=== PATIENT | male | born 1945 | race Caucasian/White ===

== ENCOUNTER 2017-08-20 04:45 | Emergency (ER) | payer MEDICARE ==
[~2017-08-20] VITALS: Ht 170.2 cm; Wt 72.0 kg
[2017-08-20 04:53] VITALS: BP 129/71; PULSE 75; RESP 18; TEMP 97.5; O2SAT 96
--- NOTE | 2017-08-20 04:57 | PD ---
HPI Chief Complaint: fall Time Seen by Provider: 04:56 Travel History International Travel<30 days: No Contact w/Intl Traveler<30days: No Traveled to known affect area: No History of Present Illness HPI 72-year-old male presents to the emergency department by private transportation the care of her spouse for evaluation of head injury and syncope. According to the patient's spouse, a [place] ED nurse, and the patient he was asleep in bed and somehow managed to roll out of bed and fall to the floor hitting the back of his head against the night stand and his buttocks/coccyx against the bed railing. estimates the bed height to be 2-1/2-3 feet. states that she was awake and in the bathroom and heard the patient fall; she went immediately to his aid and the patient was awake. assisted the patient to bed and then shortly thereafter the patient complained of not feeling well and witnessed a syncopal episode about "2 minutes" in duration with brief posturing and ashen color and poor respiratory effort. The turned him on his side into a rescue position. Patient came to on his own. Spouse does not report any seizure activity or postictal confusion. Patient here complains of posterior head pain ("not too bad") and coccyx pain (5/10). Patient has been ambulatory. Patient here denies any visual disturbance change in mentation tongue trauma denies neck pain denies chest pain rib pain or shortness of breath. Patient denies upper back pain abdominal pain or extremity numbness tingling weakness or pain. Patient does take a low-dose aspirin daily. Patient takes no other blood thinning agents. [facility] Past Medical History Narrative Medical Nursing notes reviewed --gouty arthritis, hypothyroidism; hemorrhoidectomy; no tobacco use Social History Tobacco Use: No Allergies-Medications (Allergen,Severity, Reaction): Coded Allergies: No Known Allergies (Unverified , 08/20/17) Reported Meds & Prescriptions Reported Meds & Active Scripts Active Zofran Odt (Ondansetron Odt) 4 Mg Tab 4 Mg SL Q6HR PRN Reported Synthroid (Levothyroxine Sodium) 50 Mcg Tab 50 Mcg PO DAILY Aspirin 81 Mg Chew 81 Mg CHEW DAILY Allopurinol 300 Mg Tab 300 Mg PO DAILY Review of Systems Except as stated in HPI: all other systems reviewed are Neg General / Constitutional: No: Fever Eyes: No: Visual changes HENT: Positive: Headaches, No: Neck Stiffness, Neck Pain Cardiovascular: Positive: Syncope, No: Chest Pain or Discomfort Respiratory: No: Shortness of Breath Gastrointestinal: No: Nausea, Vomiting, Abdominal Pain Genitourinary: No: Pelvic Pain, Flank Pain Musculoskeletal: Positive: Pain (coccyx pain) Skin: No Rash Neurologic: Positive: Syncope, Headache, No: Weakness, Dizziness, Focal Abnormalities, Coordination Problem, Tremor, Ataxia, Change in Mentation, Slurred Speech, Paresthesia, Seizures Psychiatric: No: Anxiety Endocrine: No: Heat Intolerance Hematologic/Lymphatic: No: Easy Bruising Physical Exam Narrative GENERAL: Well-developed well-nourished male in no acute distress no respiratory distress; GCS 15 SKIN: Warm and dry. HEAD: Atraumatic. Normocephalic. Ecchymosis to posterior scalp without abrasion or laceration or bony abnormality to palpation. EYES: Pupils equal and round. Extraocular muscles intact. No scleral icterus. No injection or drainage. ENT: No nasal bleeding or discharge. Mucous membranes pink and moist. No hemotympanum. NECK: Trachea midline. No JVD. No midline tenderness to direct palpation along the cervical spine no bony step-off no paracervical muscle spasm. CARDIOVASCULAR: Regular rate and rhythm. Chest wall: Nontender to palpation. RESPIRATORY: No accessory muscle use. Clear to auscultation. Breath sounds equal bilaterally. GASTROINTESTINAL: Abdomen soft, non-tender, nondistended. Hepatic and splenic margins not palpable. MUSCULOSKELETAL: Extremities without clubbing, cyanosis, or edema. No obvious deformities. Palpation along the dorsal and lumbar spine is nontender to direct palpation no bony step-off however palpation of the coccyx elicits pain. NEUROLOGICAL: Awake and alert. No obvious cranial nerve deficits. Motor grossly within normal limits. Five out of 5 muscle strength in the arms and legs. Normal speech. PSYCHIATRIC: Appropriate mood and affect; insight and judgment normal. Data Data Last Documented VS Vital Signs Date Time Temp Pulse Resp B/P (MAP) Pulse Ox O2 Delivery O2 Flow Rate FiO2 08/20/17 06:37 78 16 122/81 (95) 99 08/20/17 06:08 Room Air 08/20/17 04:[address] Brain W/O Iv Contrast(Rout) (08/20/17 ) Spine, Lumbar - Ltd (Ap & Lat) (08/20/17 ) Sacrum And Coccyx (08/20/17 ) ^ Saline Lock (08/20/17 04:52) Complete Blood Count With Diff (08/20/17 04:52) Basic Metabolic Panel (Bmp) (08/20/17 04:52) Electrocardiogram (08/20/17 ) Ice/Cold Pack (08/20/17 04:52) Troponin I (08/20/17 05:30) Ondansetron Inj (Zofran Inj) (08/20/17 06:00) Sodium Chlor 0.9% 1000 Ml Inj (Ns 1000 M (08/20/17 06:00) Ed Discharge Order (08/20/17 06:23) Labs Laboratory Tests Test 08/20/17 05:00 White Blood Count 7.1 TH/MM3 Red Blood Count 4.51 MIL/MM3 Hemoglobin 13.4 GM/DL Hematocrit 40.1 % Mean Corpuscular Volume 88.8 FL Mean Corpuscular Hemoglobin 29.6 PG Mean Corpuscular Hemoglobin Concent 33.4 % Red Cell Distribution Width 13.1 % Platelet Count 210 TH/MM3 Mean Platelet Volume 7.6 FL Neutrophils (%) (Auto) 52.7 % Lymphocytes (%) (Auto) 29.0 % Monocytes (%) (Auto) 10.5 % Eosinophils (%) (Auto) 7.0 % Basophils (%) (Auto) 0.8 % Neutrophils # (Auto) 3.7 TH/MM3 Lymphocytes # (Auto) 2.1 TH/MM3 Monocytes # (Auto) 0.7 TH/MM3 Eosinophils # (Auto) 0.5 TH/MM3 Basophils # (Auto) 0.1 TH/MM3 CBC Comment DIFF FINAL Differential Comment Blood Urea Nitrogen 16 MG/DL Creatinine 0.96 MG/DL Random Glucose 90 MG/DL Calcium Level 8.7 MG/DL Sodium Level 141 MEQ/L Potassium Level 3.9 MEQ/L Chloride Level 108 MEQ/L Carbon Dioxide Level 25.8 MEQ/L Anion Gap 7 MEQ/L Estimat Glomerular Filtration Rate 77 ML/MIN Troponin I LESS THAN 0.02 NG/ML MDM Medical Decision Making Medical Screen Exam Complete: Yes Emergency Medical Condition: Yes Medical Record Reviewed: Yes Interpretation(s) EKG: Normal sinus rhythm rate [address] elevation or injury or ectopy; baseline artifact present L/S xr: nabi coccyx: no fracture noted Troponin I: Less than 0.02, not elevated CBC & BMP Diagram 08/20/17 05:00 Calcium Level 8.7 Vital Signs Date Time Temp Pulse Resp B/P (MAP) Pulse Ox O2 Delivery O2 Flow Rate FiO2 08/20/17 05:17 70 Room Air 08/20/17 05:11 70 16 132/78 (96) 99 Room Air 08/20/17 04:53 97.5 75 18 129/71 (90) [address] 08/20/17 0000 Signed Impressions: Service Date/Time: Sunday, August 20, 2017 05:32 - CONCLUSION: Negative noncontrast CT. Getachew Moffett MD Differential Diagnosis Mechanical fall, minor closed head injury, intracranial hemorrhage, skull fracture, coccyx fracture, buttock contusion, syncope, seizure, arrhythmia, anemia Narrative Course Patient placed on monitoring specialist IV access obtained specimens collected and sent for resulting CT brain noncontrast and imaging of the lumbar spine sacrum and coccyx ordered @ 0555 patient with episode of nausea; mild decrease of heart rate and lowering of the blood pressure Patient complaint of nausea given Zofran 4 mg iv x 1 dose At 6:18 AM patient resting comfortably taking oral hydration well spouse and patient informed of imaging results lab results EKG findings and stable for outpatient management suspect vasovagal syncope episode post fall post closed head injury Diagnosis Primary Impression: Minor closed head injury Additional Impressions: Contusion of coccyx Qualified Codes: S30.0XXA - Contusion of lower back and pelvis, initial encounter Syncope, vasovagal Referrals: Primary Care Physician call for appointment Patient Instructions: General Instructions Additional Instructions: Increase fluid hydration Apply ice pack intermittently to areas of soft tissue swelling and inflammation Intake as far and ibuprofen or acetaminophen per package directions May use Zofran as prescribed as needed for nausea and/or vomiting Follow-up with your primary care provider call office on Tuesday Return to the emergency department pain headache nausea vomiting change in mentation or any concerns Avoid driving 24 hours Med/Other Pt SpecificInfo: Prescription(s) given Scripts Ondansetron Odt (Zofran Odt) 4 Mg Tab 4 MG SL Q6HR Y for Nausea/Vomiting, #10 TAB 0 Refills Prov: Emilie Savage MD 08/20/17 Disposition: 01 DISCHARGE HOME Condition: Stable Emilie Savage MD Aug 20, 2017 04:57
[2017-08-20] MEDS ORDERED: ALLO300T2 PO (05:05)
[2017-08-20] MEDS ORDERED: LEVO.05 PO (05:06)
[2017-08-20] MEDS ORDERED: ASPI81CH CHEW (05:06)
[2017-08-20 05:11] VITALS: BP 132/78; PULSE 70; RESP 16; O2SAT 99
[2017-08-20 05:15] LABS: AUTOMATED NEUTROPHIL # 3.7 TH/MM3 (1.8-7.7); BASOPHIL # 0.1 TH/MM3 (0-0.2); BASOPHIL % 0.8 % (0.0-2.0); EOSINOPHIL # 0.5 TH/MM3 (0-0.4); HEMATOCRIT 40.1 % (39.0-51.0); HEMO FLAGS DIFF FINAL; LYMPHOCYTE # 2.1 TH/MM3 (1.0-4.8); MEAN CELL VOLUME 88.8 FL (80.0-100.0); MEAN CORPUSCULAR HEMOGLOBIN 29.6 PG (27.0-34.0); MEAN CORPUSCULAR HGB CONC 33.4 % (32.0-36.0); MONO % 10.5 % (0.0-8.0); NEUT % 52.7 % (16.0-70.0); PLATELET COUNT 210 TH/MM3 (150-450); RED BLOOD COUNT 4.51 MIL/MM3 (4.50-5.90); RED CELL DISTRIBUTION WIDTH 13.1 % (11.6-17.2); WHITE BLOOD COUNT 7.1 TH/MM3 (4.0-11.0)
[2017-08-20 05:21] LABS: POTASSIUM 3.9 MEQ/L (3.5-5.1)
[2017-08-20 05:23] LABS: BICARBONATE 25.8 MEQ/L (21.0-32.0)
--- NOTE | 2017-08-20 05:59 | RADRPT ---
EXAM DATE/TIME: 08/20/2017 05:32 [facility] COMPARISON: No previous studies available for comparison. INDICATIONS : Status post fall and injury. Hit top posterior head. Syncopal episode. RADIATION DOSE: 61.85 CTDIvol (mGy) MEDICAL HISTORY : None SURGICAL HISTORY : None. ENCOUNTER: Initial ACUITY: 1 day PAIN SCALE: 6/10 LOCATION: cranial TECHNIQUE: Multiple contiguous axial images were obtained of the head. Using automated exposure control and adj ustment of the mA and/or kV according to patient size, radiation dose was kept as low as reasonably a chievable to obtain optimal diagnostic quality images. DICOM format image data is available electro nically for review and comparison. FINDINGS: CEREBRUM: The ventricles are normal for age. No evidence of midline shift, mass lesion, hemorrhage or acute in farction. No extra-axial fluid collections are seen. POSTERIOR FOSSA: The cerebellum and brainstem are intact. The 4th ventricle is midline. The cerebellopontine angle i s unremarkable. EXTRACRANIAL: The visualized portion of the orbits is intact. SKULL: The calvaria is intact. No evidence of skull fracture. CONCLUSION: Negative noncontrast CT. Getachew Moffett MD on August 20, 2017 at 5:57 Board Certified Radiologist. This report was verified electronically.
[2017-08-20] MEDS ORDERED: SODIUM CHLOR 0.9% 1000 ML INJ 1,000 ML IV SCH (06:00)
[2017-08-20] MEDS ORDERED: ONDANSETRON HCL 4 MG/2 ML VIAL IV PUSH ONE (06:00)
[2017-08-20 06:08] VITALS: BP 119/75; PULSE 69; RESP 16; O2SAT 98
--- NOTE | 2017-08-20 06:16 | RADRPT ---
EXAM DATE/TIME: 08/20/2017 04:58 [facility] COMPARISON: No previous studies available for comparison. INDICATIONS : Lumbar spine pain post fall. MEDICAL HISTORY : None. SURGICAL HISTORY : None. ENCOUNTER: Initial ACUITY: 1 day PAIN SCORE: 8/10 LOCATION: Bilateral lumbar spine FINDINGS: AP and lateral views of the lumbar spine were obtained and demonstrate 5 nonrib-bearing lumbar type v ertebra with mild scoliosis. There are mild degenerative disc changes. There is diffuse osteopenia wi th no acute fracture or malalignment. The sacrum is intact in appearance. There is a moderate to larg e amount of stool noted throughout the colon. CONCLUSION: 1. Osteopenia with no acute fracture or malalignment. 2. Mild scoliosis and degenerative change. 3. Moderate to large amount of stool throughout the colon. Getachew Moffett MD on August 20, 2017 at 6:14 Board Certified Radiologist. This report was verified electronically.
--- NOTE | 2017-08-20 06:17 | RADRPT ---
EXAM DATE/TIME: 08/20/2017 04:58 [facility] COMPARISON: No previous studies available for comparison. INDICATIONS : Sacrum/coccyx pain post fall. MEDICAL HISTORY : None. SURGICAL HISTORY : None. ENCOUNTER: Initial ACUITY: 1 day PAIN SCORE: 9/10 LOCATION: Bilateral sacrum/coccyx FINDINGS: Two-view examination of the sacrum and coccyx demonstrates no evidence of fracture or malalignment. The sacral ala and foramina appear symmetric and intact. The coccyx appears unremarkable. The preve rtebral soft tissues are within normal limits. There is osteopenia. CONCLUSION: Osteopenia with no acute fracture or malalignment. Getachew Moffett MD on August 20, 2017 at 6:15 Board Certified Radiologist. This report was verified electronically.
[2017-08-20] MEDS ORDERED: ZOFR4TAB3 SL (06:21)
[2017-08-20 06:37] VITALS: BP 122/81
--- NOTE | 2017-08-20 17:05 | EKG ---
Date Performed: 08/20/2017 Time Performed: 04:58:40 PTAGE: 72 years EKG: Sinus rhythm NORMAL ECG NO PREVIOUS TRACING DOCTOR: Sarah Gil Interpretating Date/Time 08/20/2017 17:04:00
== END 2017-08-20 06:40 | disposition home or self-care (01) ==
LOC: PHED 04:45
DX: S09.8XXA Other specified injuries of head, initial encounter (principal); S30.0XXA Contusion of lower back and pelvis, initial encounter; R55 Syncope and collapse; R11.0 Nausea; E03.9 Hypothyroidism, unspecified; Z79.82 Long term (current) use of aspirin; Z87.39 Personal history of other diseases of the musculoskeletal system and connective tissue; W06.XXXA Fall from bed, initial encounter
CPT/HCPCS: 70450; 72100; 72220; 80048; 84484; 85025; 93005; 96374; 99285; J2405; J7030